=== PATIENT | male | born 1970 | race Caucasian/White ===

== ENCOUNTER → 2017-08-25 | Outpatient (CLI) | payer BC ==
--- NOTE | 2017-08-25 08:10 | CT ---
EXAMINATION TYPE: CT shoulder LT wo con DATE OF EXAM: 08/25/2017 COMPARISON: NONE HISTORY: Left Shoulder Pain CT DLP: 793.[address] of the left shoulder with reconstruction imaging. TECHNIQUE: Unenhanced CT of the left shoulder was performed with bone and soft tissue window settings submitted in the axial coronal and sagittal planes. At a separate workstation [id number] TR imaging was ob tained. FINDINGS: There is anterior inferior bony glenoid fracture identified. There is no evidence for addit ional fracture within the [id number]. Displacement of 1.9 mm. Glenohumeral joint is intact. No myrtle dence for subacromial impingement. AC joint arthropathy with mild spurring and a vacuum changes seen . Mild spur formation involving the greater humeral tuberosity. Glenohumeral joint space is well-pr eserved. No obvious rotator cuff abnormality seen on CT. MRI is much more sensitive and specific to rotator cuff pathology. No soft tissue masses appreciated. Visualized portions of the left lung de monstrate right apical scarring. IMPRESSION: 1. There is anterior inferior bony glenoid fracture identified. There is no evidence for additional f racture within the [id number].
== END | disposition home or self-care (01) ==
LOC: RADCTMAIN 07:12
PROVIDERS: ATTEND Orthopaedic Surgery
DX: S42.142A Displaced fracture of glenoid cavity of scapula, left shoulder, initial encounter for closed fracture (principal)

== ENCOUNTER 2024-11-13 06:18 | Day surgery (SDC) | payer BC ==
[2024-11-09 11:46] VITALS: BMI 34.9
[~2024-11-13 06:18] MED LIST: BENZOCAINE SPRAY 1 EACH MM PRN; MIDAZOLAM 2 MG/2 ML VIAL IV PRN; fentaNYL (PF) 50 MCG/ML 2 ML AMP IVP PRN
[2024-11-13 07:08] VITALS: TEMP 98.4
[2024-11-13] MEDS: SODIUM CHLORIDE 0.9% 500 ML 500 ML IV ONE (07:20)
[2024-11-13] MEDS: BENZOCAINE SPRAY 1 EACH MM ONE ×2 (07:38)
[2024-11-13] MEDS: MIDAZOLAM 2 MG/2 ML VIAL IVP ONE ×2 (07:50→07:52)
[2024-11-13] MEDS: fentaNYL (PF) 50 MCG/1 ML VIAL IVP ONE (07:50)
[2024-11-13 07:55] VITALS: RESP 16
--- NOTE | 2024-11-13 08:08 | P.TEE ---
Description of Procedure(s): Procedure performed: Transesophageal Echocardiogram with color flow doppler, pulsed wave doppler and continuous wave doppler, moderate conscious sedation Moderate conscious sedation: Moderate conscious sedation was supplied with direct supervision of myself using Versed and Fentanyl. Complications: none Indications: Bicuspid aortic valve, aortic stenosis, dyspnea on exertion PROCEDURE: After the risks, benefits and alternatives of the above mentioned procedure was explained in detail with the patient, informed consent was obtained. Patient was brought to the lab in a fasting state. Patient was given IV Versed and Fentanyl for sedation. The throat was sprayed with Hurricane to anesthetize the throat. A lubricated Omni probe was then introduced into the esophagus and stomach and multiple views were obtained. 2D echo with color flow doppler, pulsed wave doppler and continuous wave doppler was utilized. Agitated saline bubbles were injected to assess for any intra-atrial shunt. The probe was then removed. Patient tolerated the procedure well. Patient was transferred to the post procedure area in stable and satisfactory condition. FINDINGS: 1. The aortic valve is bicuspid with fusion of the right and left coronary cusp with mild aortic stenosis and aortic valve area 2.6 cm by planimetry and mild aortic insufficiency. 2. The mitral valve appears be normal with mild mitral regurgitation. 3. Tricuspid valve appears to be normal. 4. The interatrial septum is intact. No evidence of PFO. 5. Left atrial appendage is free of clot. 6. Left ventricular ejection fraction 55% 7. There is a ascending aortic aneurysm measuring 4.3 cm
[2024-11-13 16:07] VITALS: BP 128/72; PULSE 63
== END 2024-11-13 09:22 | disposition home or self-care (01) ==
LOC: CATHCVL 06:18
PROVIDERS: ATTEND Internal Medicine
DX: I35.0 Nonrheumatic aortic (valve) stenosis (principal); Q23.81 Bicuspid aortic valve; I34.0 Nonrheumatic mitral (valve) insufficiency; I71.21 Aneurysm of the ascending aorta, without rupture; E78.2 Mixed hyperlipidemia; E66.9 Obesity, unspecified; Z68.30 Body mass index [BMI] 30.0-30.9, adult; Z79.1 Long term (current) use of non-steroidal anti-inflammatories (NSAID); Z79.899 Other long term (current) drug therapy
CPT/HCPCS: 93312; 93320; 93325; J2250; J3010